=== PATIENT | male | born 1935 | race Asian ===

== ENCOUNTER 2024-06-01 15:44 | Emergency (ER) | payer OTHER ==
[~2024-06-01] VITALS: Ht 154.9 cm; Wt 52.2 kg
[~2024-06-01 15:44] MED LIST: ETOMIDATE 20 MG/ 10 ML VIAL (AMIDATE) ONE; SUCCINYLCHOLINE CHLORIDE 20 MG/ML(QUELICIN) ONE
[2024-06-01 15:45] VITALS: BP_SYST 106; PULSE 101; RESP 26; TEMP 97.5; O2SAT 96
[2024-06-01] MEDS: NACL 0.9% 1,000 ML IV ONE ×2 (15:59→17:01)
[2024-06-01] MEDS: PROPOFOL DRIP 100 ML IV ONE ×2 (16:12→22:18)
[2024-06-01] MEDS: ONDANSETRON HCL 4 MG/2 ML VIAL IVP ONE (16:27)
[2024-06-01] MEDS: ETOMIDATE 20 MG/ 10 ML VIAL (AMIDATE) IVP ONE (16:38)
[2024-06-01] MEDS: SUCCINYLCHOLINE CHLORIDE 20 MG/ML(QUELICIN) IVP ONE (16:39)
[2024-06-01 16:50] LABS: BILIRUBIN,URINE NEGATIVE (NEGATIVE); BLOOD, URINE NEGATIVE (NEGATIVE); CLARITY/URINE TURBID (CLEAR); COLOR,URINE YELLOW (YELLOW); GLUCOSE,URINE NEGATIVE (NEGATIVE); KETONES,URINE NEGATIVE (NEGATIVE); LEUKOCYTE ESTERASE ,URINE 3+ (NEGATIVE); NITRITE, URINE NEGATIVE (NEGATIVE); PH,URINE >=9.0 (5.0-8.0); PROTEIN URINE 3+ (NEGATIVE); UROBILINOGEN,URINE 0.2 (0.2-1.0)
[2024-06-01 16:53] LABS: ABG O2 SAT% ESTIMATE 99.8 % (94.0-100.0); BLOOD GAS BASE EXCESS -20.8 mmol/L (-3.0-3.0); BLOOD GAS PCO2 26.8 mmHg (32.0-45.0); BLOOD GAS PO2 522.6 mmHg (75.0-100.0)
[2024-06-01 16:55] LABS: BLOOD GAS HCO3 7.3 mmol/L (21.0-27.0); BLOOD GAS PH 7.051 (7.350-7.450)
[2024-06-01 16:56] LABS: ALLEN'S TEST POSITIVE (P)
[2024-06-01 17:17] LABS: ANION GAP 25 (5-15); CALCIUM 8.6 mg/dL (8.4-11.0); CHLORIDE 107 mmol/L (98-107); GLUCOSE 362 mg/dL (74-106); SODIUM SERUM 140 mmol/L (136-145); UREA NITROGEN, BLOOD 32 mg/dL (8-21)
[2024-06-01 17:21] VITALS: BP_SYST 118; PULSE 115; O2SAT 96
[2024-06-01 17:24] LABS: MEAN CORPUSCULAR HEMOGLOBIN 27 pg (27-31); MEAN CORPUSCULAR HGB CONC 27 % (32-36); MEAN CORPUSCULAR VOLUME 97 fL (79.0-98.0); PLATELET COUNT (AUTO) 352 K/uL (130-430); RED CELL DISTRIBUTION WIDTH 19.2 % (9.0-15.0); WHITE BLOOD COUNT (AUTO) 13.5 K/uL (4.8-10.8)
[2024-06-01 17:36] LABS: RED BLOOD CELL COUNT(AUTO) 1.14 MIL/uL (4.2-6.2)
[2024-06-01 17:38] LABS: CARBON DIOXIDE 8 mmol/L (23-29)
[2024-06-01 17:38] LABS: HEMATOCRIT 11.1 % (36-54)
[2024-06-01 17:49] LABS: BACTERIA,URINE MANY /HPF (None Seen); RBC,URINE 0-3 /HPF (0-3); WBC,URINE 20-50 /HPF (0-3)
[2024-06-01] MEDS ORDERED: GLIM4TAB37 PO (17:59)
[2024-06-01] MEDS ORDERED: AMLO2.5T50 PO (17:59)
[2024-06-01] MEDS ORDERED: METF750T46 PO (17:59)
[2024-06-01] MEDS ORDERED: TEMA15CA PO (17:59)
[2024-06-01 18:05] LABS: BAND % (MANUAL) 11 % (0-6); BASOPHILS % (MANUAL) 0 % (0-2); EOSINOPHILS % (MANUAL) 0 % (0-7); LYMPHOCYTES % (MANUAL) 8 % (20-46); MONOCYTES % (MANUAL) 1 % (0-11); PLATELET ESTIMATE ADEQUATE (ADEQUATE); POLYCHROMASIA 2+
[2024-06-01 18:06] LABS: ANISOCYTOSIS 1+; HYPOCHROMASIA 1+; OVALOCYTES FEW; TARGET CELLS FEW
[2024-06-01 18:10] LABS: PROTHROMBIN TIME 10.4 SECS (9.5-12.5)
[2024-06-01] MEDS ORDERED: cefTRIAXone 1 GM VIAL ONE (18:54)
[2024-06-01] MEDS: INSULIN REGULAR, HUMAN 10 UNITS/0.1 ML, 3 ML VIAL IVP ONE (18:56)
[2024-06-01] MEDS: cefTRIAXone 1 GM in D5W 50 ML IV ONE (18:59)
[2024-06-01 19:40] VITALS: BP_SYST 94; PULSE 84
[2024-06-01] MEDS: ALBUMIN HUMAN 25% 100 ML IV ONE (19:57)
[2024-06-01] MEDS: SODIUM BICARBONATE 8.4% JECT 50 MEQ/50 ML SYRINGE IVP ONE (20:04)
[2024-06-01] MEDS: levETIRAcetam 1,000 MG IV BAG 100 ML IV ONE (20:05)
[2024-06-01] MEDS: SODIUM BICARBONATE 8.4% VIAL 50 MEQ/50 ML VIAL INJ ONE (22:16)
[2024-06-01 23:42] VITALS: BP_SYST 119; PULSE 66
[2024-06-01 23:53] VITALS: BP_SYST 119; PULSE 66; RESP 16; TEMP 98; O2SAT 100
== END 2024-06-01 23:46 | disposition short-term general hospital (02) ==
LOC: SED 15:44
DX: S09.8XXA Other specified injuries of head, initial encounter (principal); I61.8 Other nontraumatic intracerebral hemorrhage; E11.10 Type 2 diabetes mellitus with ketoacidosis without coma; R55 Syncope and collapse; N17.9 Acute kidney failure, unspecified; I10 Essential (primary) hypertension; Z46.59 Encounter for fitting and adjustment of other gastrointestinal appliance and device; Z88.0 Allergy status to penicillin; Z88.2 Allergy status to sulfonamides; Z85.9 Personal history of malignant neoplasm, unspecified; Z79.899 Other long term (current) drug therapy; Z79.2 Long term (current) use of antibiotics; W18.39XA Other fall on same level, initial encounter; Y93.89 Activity, other specified; Y92.89 Other specified places as the place of occurrence of the external cause; Y99.8 Other external cause status
CPT/HCPCS: 36569; 85027; 80048; 81001; 83880; 85007; 85610; 85730; 86886; 86900; 86901; 87086; 87186; 84484; 86920; 36415; 70450; 94640; 31500; 88740; 82948; 83605; 99285; 87040; 87081; 93005; 71045; 96361; 96365; 96367; 96375; 36430; P9021; P9046; J0696; J1953; J2405; J2704; J0330; J7030; 81000; 81015; 94002; 94760; J1815; J3490